=== PATIENT | female | born 1930 | race Caucasian/White ===

== ENCOUNTER 2017-09-07 06:05 | Inpatient (IN) ==
[2017-09-06 12:56] LABS: Basophils # 0.1 10*3/uL (0.0-0.2); Basophils % 0.7 % (0.0-0.8); Eosinophils # 0.2 10*3/uL (0.0-0.87); Eosinophils % 2.3 % (0.00-10.9); Hematocrit 36.4 VOL% (35.7-47.0); Hemoglobin 12.7 GM/DL (12.0-16.0); Immature Granulocytes % 0.6 %; Immature Granulocytes Absolute 0.05 #; Lymphocytes # 1.4 10*3/uL (1.4-4.0); Lymphocytes % 16.6 % (21.3-54.2); Mean Corpuscular HGB Conc 34.9 GM/DL (32-36); Mean Corpuscular Hemoglobin 30 PG (27-34); Mean Corpuscular Volume 86.1 FL (87-102); Mean Platelet Volume 10.7 FL (9.6-12.0); Monocytes # 0.6 10*3/uL (0.11-0.8); Monocytes % 6.6 % (1.7-12.7); Neutrophils # 6.1 10*3/uL (1.4-7.4); Neutrophils % 73.2 % (38.7-73.9); Platelet Count 192 T/CUMM (130-400); Red Blood Count 4.23 MC/CUMM (3.8-5.5); Red Cell Distribution Width 11.9 % (9.3-17.3); White Blood Count 8.3 T/CUMM (4-12)
[2017-09-06 13:23] LABS: Calcium 9.1 MG/DL (8.5-10.1); Osmolality,Calculated 260.9 MOS/KG (273-304); Potassium 3.8 MMOL/L (3.5-5.1)
[2017-09-07] MEDS ORDERED: ceFAZolin 1,000 MG in SYRINGE 1 EACH IV ONE (06:30)
[2017-09-07] MEDS ORDERED: ISOSULFAN BLUE 5 ML VIAL SUBCUT ONE (08:37)
[2017-09-07] MEDS ORDERED: BUPIVACAINE MPF 0.25% /EPI 30 ML VIAL ONE (08:38)
[2017-09-07] MEDS ORDERED: LIDOCAINE 1%/EPI INJ 20 ML VIAL ONE (08:38)
[2017-09-07] MEDS ORDERED: ceFAZolin 1,000 MG VIAL ONE (08:47)
[2017-09-07] MEDS ORDERED: SODIUM CHLORIDE 0.9% 1,000 ML IV SCH (09:00)
[2017-09-07] MEDS ORDERED: BACITRACIN 50,000 UNIT VIAL ONE (09:38)
[2017-09-07] MEDS ORDERED: BACITRACIN OINT 0.9 GM PACK TOP ONE ×2 (10:22→10:32)
[2017-09-07] MEDS ORDERED: LIDOCAINE 1% 5 ML VIAL ONE (11:38)
[2017-09-07] MEDS ORDERED: PROPOFOL 200 MG/20 ML VIAL IV ONE (11:38)
[2017-09-07] MEDS ORDERED: SEVOFLURANE 1 UNIT/15 MINUTE INH ONE (11:38)
[2017-09-07] MEDS ORDERED: ACETAMINOPHEN 1,000 MG/100 ML VIAL IV ONE (11:39)
[2017-09-07] MEDS ORDERED: ROCURONIUM 100 MG/10 ML VIAL IV ONE (11:39)
[2017-09-07] MEDS ORDERED: MIDAZOLAM 2 MG/2 ML VIAL ONE (11:39)
[2017-09-07] MEDS ORDERED: fentaNYL 100 MCG/2 ML VIAL ONE (11:39)
[2017-09-07] MEDS ORDERED: ONDANSETRON 4 MG/2 ML VIAL ONE (11:39)
[2017-09-07] MEDS ORDERED: SUCCINYLCHOLINE 200 MG/10 ML VIAL ONE (11:39)
[2017-09-07] MEDS ORDERED: LACTATED RINGERS 1,000 ML IV ONE (11:39)
[2017-09-07] MEDS ORDERED: ONDANSETRON 4 MG/2 ML VIAL IV PRN (11:48)
[2017-09-07] MEDS: LACTATED RINGERS 1,000 ML IV SCH (12:00)
[2017-09-07] MEDS: MORPHINE 4 MG/1 ML VIAL IV PRN (19:16)
[2017-09-08] MEDS: LACTATED RINGERS 1,000 ML IV SCH ×2 (01:22→23:32)
[2017-09-08 04:35] LABS: Calcium 7.9 MG/DL (8.5-10.1); Osmolality,Calculated 273.1 MOS/KG (273-304); Potassium 4.4 MMOL/L (3.5-5.1)
[2017-09-08 04:40] LABS: Basophils % 0.3 % (0.0-0.8); Eosinophils # 0.2 10*3/uL (0.0-0.87); Eosinophils % 1.5 % (0.00-10.9); Hematocrit 30.3 VOL% (35.7-47.0); Hemoglobin 10.6 GM/DL (12.0-16.0); Immature Granulocytes % 0.8 %; Immature Granulocytes Absolute 0.09 #; Lymphocytes # 1.4 10*3/uL (1.4-4.0); Mean Corpuscular Hemoglobin 31 PG (27-34); Mean Corpuscular Volume 88.1 FL (87-102); Mean Platelet Volume 11.5 FL (9.6-12.0); Monocytes # 0.8 10*3/uL (0.11-0.8); Monocytes % 6.9 % (1.7-12.7); Neutrophils # 8.4 10*3/uL (1.4-7.4); Neutrophils % 77.5 % (38.7-73.9); Platelet Count 174 T/CUMM (130-400); Red Blood Count 3.44 MC/CUMM (3.8-5.5); Red Cell Distribution Width 12.4 % (9.3-17.3); White Blood Count 10.9 T/CUMM (4-12)
[2017-09-08] MEDS: NEBIVOLOL 5 MG TABLET PO SCH (08:36)
[2017-09-08] MEDS: PANTOPRAZOLE 40 MG TABLET PO SCH (08:36)
[2017-09-08] MEDS: ASPIRIN EC 81 MG TABLET PO SCH (08:36)
[2017-09-08] MEDS: MORPHINE 4 MG/1 ML VIAL IV PRN (21:16)
[2017-09-09] MEDS: LACTATED RINGERS 1,000 ML IV SCH ×2 (04:19→13:14)
[2017-09-09] MEDS ORDERED: PHENOL 1.4% THROAT SPRAY 177 ML BOTTLE PO PRN (08:03)
[2017-09-09] MEDS: NEBIVOLOL 5 MG TABLET PO SCH (09:33)
[2017-09-09] MEDS: ASPIRIN EC 81 MG TABLET PO SCH (09:33)
[2017-09-09] MEDS: PANTOPRAZOLE 40 MG TABLET PO SCH (09:34)
[2017-09-09] MEDS: MORPHINE 4 MG/1 ML VIAL IV PRN (21:39)
[2017-09-10] MEDS: LACTATED RINGERS 1,000 ML IV SCH ×2 (02:58→11:54)
[2017-09-10] MEDS: ASPIRIN EC 81 MG TABLET PO SCH (08:41)
[2017-09-10] MEDS: NEBIVOLOL 5 MG TABLET PO SCH (08:41)
[2017-09-10] MEDS: PANTOPRAZOLE 40 MG TABLET PO SCH (08:41)
[2017-09-10] MEDS: ACETAMINOPHEN 325 MG TABLET PO PRN (12:19)
[2017-09-10] MEDS: MORPHINE 4 MG/1 ML VIAL IV PRN (22:29)
[2017-09-11] MEDS: NEBIVOLOL 5 MG TABLET PO SCH (09:39)
[2017-09-11] MEDS: PANTOPRAZOLE 40 MG TABLET PO SCH (09:40)
[2017-09-11] MEDS: ASPIRIN EC 81 MG TABLET PO SCH (09:40)
[2017-09-11] MEDS: ACETAMINOPHEN 325 MG TABLET PO PRN (15:08)
[2017-09-12] MEDS: NEBIVOLOL 5 MG TABLET PO SCH (08:46)
[2017-09-12] MEDS: PANTOPRAZOLE 40 MG TABLET PO SCH (08:46)
[2017-09-12] MEDS: ASPIRIN EC 81 MG TABLET PO SCH (08:46)
[2017-09-12 09:25] LABS: Hematocrit 29.9 VOL% (35.7-47.0); Hemoglobin 10.1 GM/DL (12.0-16.0)
[2017-09-12] MEDS: LISINOPRIL 20 MG TABLET PO SCH ×2 (09:47→20:30)
[2017-09-13] MEDS: LISINOPRIL 20 MG TABLET PO SCH (08:32)
[2017-09-13] MEDS: ASPIRIN EC 81 MG TABLET PO SCH (08:32)
[2017-09-13] MEDS: PANTOPRAZOLE 40 MG TABLET PO SCH (08:32)
[2017-09-13] MEDS: NEBIVOLOL 5 MG TABLET PO SCH (08:32)
[2017-09-13 12:01] VITALS: BP 150/75
== END 2017-09-13 14:40 | disposition swing bed (61) | DRG 577 ==
LOC: N.OR 06:05 → N.SDSINP 06:08 → EDSTATUS 06:30 → N.3E 11:31
PROVIDERS: ADMIT Surgery; ATTEND Surgery

== ENCOUNTER 2019-10-06 18:23 | Inpatient (IN) ==
[2019-10-06] MEDS ORDERED: MORPHINE 4 MG/1 ML VIAL ONE (19:18)
[2019-10-06] MEDS ORDERED: MORPHINE 4 MG/1 ML VIAL IV STA (19:21)
[2019-10-06] MEDS ORDERED: MORPHINE 4 MG/1 ML VIAL IV ONE ×2 (19:22→21:16)
[2019-10-06 19:36] LABS: Basophils % 0.3 % (0.0-0.8); Eosinophils % 0.3 % (0.00-10.9); Hematocrit 33.8 VOL% (35.7-47.0); Hemoglobin 10.9 GM/DL (12.0-16.0); Immature Granulocytes % 1.4 %; Immature Granulocytes Absolute 0.19 #; Lymphocytes # 1.2 10*3/uL (1.4-4.0); Lymphocytes % 9.4 % (21.3-54.2); Mean Corpuscular HGB Conc 32.2 GM/DL (32-36); Mean Corpuscular Volume 85.1 FL (87-102); Mean Platelet Volume 11.2 FL (9.6-12.0); Monocytes % 4.5 % (1.7-12.7); Neutrophils % 84.1 % (38.7-73.9); Platelet Count 237 T/CUMM (130-400); Red Blood Count 3.97 MC/CUMM (3.8-5.5); Red Cell Distribution Width 13.3 % (9.3-17.3); White Blood Count 13.2 T/CUMM (4-12)
[2019-10-06 19:44] LABS: PT Patient Result 10.8 SECS (9.8-11.9); Partial Thromboplastin Time 27.1 SECS (23.9-33.8)
[2019-10-06 19:53] LABS: Albumin 3.1 G/DL (3.4-5.0); Bilirubin,Total 0.6 MG/DL (0.2-1.0); Calcium 8.7 MG/DL (8.5-10.1); Osmolality,Calculated 275.1 MOS/KG (273-304); Total Protein 6.5 G/DL (6.4-8.3); Troponin I < 0.015 NG/ML (0.00-0.045)
[2019-10-06] MEDS ORDERED: NICOTINE 21 MG/24 HR PATCH TRANSDERM PRN (22:02)
[2019-10-06] MEDS ORDERED: guaiFENesin/DM ER 600-30 MG TABLET PO PRN (22:02)
[2019-10-06] MEDS ORDERED: PROMETHAZINE 25 MG/1 ML VIAL IM PRN (22:02)
[2019-10-06] MEDS ORDERED: MORPHINE 4 MG/1 ML VIAL IV PRN (22:02)
[2019-10-06] MEDS ORDERED: GLUCAGON 1 MG VIAL IM PRN (22:02)
[2019-10-06] MEDS ORDERED: diphenhydrAMINE CAP 25 MG CAPSULE PO PRN (22:02)
[2019-10-06] MEDS ORDERED: hydrALAZINE 20 MG/1 ML VIAL IV PRN (22:02)
[2019-10-06] MEDS ORDERED: DEXTROSE 50% 25 GM/50 ML VIAL IV PRN (22:02)
[2019-10-06] MEDS ORDERED: ZALEPLON 5 MG CAPSULE PO PRN (22:02)
[2019-10-06] MEDS ORDERED: ACETAMINOPHEN 325 MG TABLET PO PRN (22:02)
[2019-10-06 22:08] LABS: Apearance,Urine Slightly Hazy (Clear); Bacteria,Urine Occasional /HPF (Few); Bilirubin,Urine Negative (Negative); Blood, Urine Negative (Negative); Glucose,Urine (UA) Negative (Negative); Ketones,Urine Negative (Negative); Mucus,Urine Occasional /LPF (Occasional); Nitrite,Urine Negative (Negative); Protein,Urine 100 MG/DL; RBC,Urine 3 /HPF (0-4); Urine Color Yellow (Yellow); Urine Specific Gravity 1.013 (1.001-1.035); Urine Urobilinogen < 2.0 EU/DL (0.2-1.0); WBC,Urine 16 /HPF (0-6)
[2019-10-06] MEDS: SODIUM CHLORIDE 0.9% 1,000 ML IV SCH (23:50)
[2019-10-06] MEDS: ONDANSETRON 4 MG/2 ML VIAL IV PRN (23:50)
[2019-10-07] MEDS: cefTRIAXone 1,000 MG in SYRINGE 1 EACH IV SCH (01:53)
[2019-10-07 05:53] LABS: Basophils # 0.1 10*3/uL (0.0-0.2); Basophils % 0.2 % (0.0-0.8); Hematocrit 33.9 VOL% (35.7-47.0); Hemoglobin 10.9 GM/DL (12.0-16.0); Immature Granulocytes % 0.8 %; Immature Granulocytes Absolute 0.16 #; Lymphocytes % 4.9 % (21.3-54.2); Mean Corpuscular HGB Conc 32.2 GM/DL (32-36); Mean Platelet Volume 11.9 FL (9.6-12.0); Monocytes % 3.5 % (1.7-12.7); Neutrophils % 90.6 % (38.7-73.9); Platelet Count 201 T/CUMM (130-400); Red Blood Count 3.94 MC/CUMM (3.8-5.5); Red Cell Distribution Width 13.2 % (9.3-17.3); White Blood Count 20.1 T/CUMM (4-12)
[2019-10-07 06:23] LABS: Hypochromasia Slight; Lymphocytes 1 % (20-55); Ovalocytes Slight; Platelet Estimate Adequate; Segmented Neutrophils 96 % (50-85); Total Cells Counted 100
[2019-10-07] MEDS: NEBIVOLOL 5 MG TABLET PO SCH (08:28)
[2019-10-07] MEDS ORDERED: VITAMIN E 1000 UNIT CAPSULE PO SCH (09:00)
[2019-10-07] MEDS ORDERED: CLINDAMYCIN INJ 900 MG in PREMIX 1 EACH IV ONE (09:00)
[2019-10-07] MEDS ORDERED: CHOLECALCIFEROL 1,000 UNIT TABLET PO SCH (09:00)
[2019-10-07] MEDS: PANTOPRAZOLE 40 MG TABLET PO SCH (09:37)
[2019-10-07] MEDS: MULTIVITAMIN (CENTRUM) TABLET PO SCH (09:37)
[2019-10-07] MEDS: [UNRECOGNIZED DRUG - REMARK] PO SCH (09:37)
[2019-10-07] MEDS: FATTY ACIDS PO SCH (09:37)
[2019-10-07] MEDS: CITALOPRAM 20 MG TABLET PO SCH (09:37)
[2019-10-07] MEDS: DOCUSATE SODIUM 100 MG CAPSULE PO SCH ×3 (09:37→21:27)
[2019-10-07] MEDS: lisinopriL 20 MG TABLET PO SCH (09:37)
[2019-10-07] MEDS: amLODIPine 5 MG TABLET PO SCH (09:37)
[2019-10-07] MEDS: OMEGA PO SCH (09:37)
[2019-10-07] MEDS ORDERED: ROPIVACAINE 0.5% 30 ML VIAL ONE (09:44)
[2019-10-07] MEDS ORDERED: fentaNYL 100 MCG/2 ML VIAL ONE ×2 (09:45→11:54)
[2019-10-07] MEDS ORDERED: DEXAMETHASONE 4 MG/1 ML VIAL ONE ×2 (09:45→11:55)
[2019-10-07] MEDS ORDERED: LIDOCAINE 1% 5 ML VIAL ONE (09:45)
[2019-10-07] MEDS ORDERED: SUGAMMADEX 200 MG/2 ML VIAL IV ONE (10:17)
[2019-10-07] MEDS ORDERED: LACTULOSE 20 GM/30 ML UDCUP PO PRN (11:19)
[2019-10-07] MEDS ORDERED: MAGNESIUM HYDROXIDE SUSP 30 ML UDCUP PO PRN (11:19)
[2019-10-07] MEDS ORDERED: BISACODYL 10 MG SUPP RECTAL PRN (11:19)
[2019-10-07] MEDS ORDERED: ACETAMINOPHEN 325 MG TABLET PO PRN (11:22)
[2019-10-07] MEDS ORDERED: MORPHINE 4 MG/1 ML VIAL IV PRN ×2 (11:24→11:38)
[2019-10-07] MEDS ORDERED: LIDOCAINE 2% 5 ML VIAL ONE (11:53)
[2019-10-07] MEDS ORDERED: ONDANSETRON 4 MG/2 ML VIAL ONE (11:55)
[2019-10-07] MEDS ORDERED: ePHEDrine 50 MG/ML VIAL ONE (11:55)
[2019-10-07] MEDS ORDERED: ROCURONIUM 100 MG/10 ML VIAL IV ONE (11:55)
[2019-10-07] MEDS ORDERED: ETOMIDATE 40 MG/20 ML VIAL IV ONE (11:55)
[2019-10-07] MEDS ORDERED: GLYCOPYRROLATE 0.4 MG/2 ML VIAL ONE (11:55)
[2019-10-07] MEDS ORDERED: SUCCINYLCHOLINE 200 MG/10 ML VIAL ONE (11:55)
[2019-10-07] MEDS ORDERED: SEVOFLURANE 1 UNIT/15 MINUTE INH ONE (11:56)
[2019-10-07 12:24] LABS: Hematocrit 30.3 VOL% (35.7-47.0); Hemoglobin 9.7 GM/DL (12.0-16.0)
[2019-10-07] MEDS: SODIUM CHLORIDE 0.9% 1,000 ML IV SCH (15:53)
[2019-10-07] MEDS ORDERED: CLINDAMYCIN INJ 900 MG in PREMIX 1 EACH IV SCH (16:00)
[2019-10-07] MEDS: CLINDAMYCIN INJ 900 MG in PREMIX 1 EACH IV SCH (17:54)
[2019-10-07] MEDS: SIMVASTATIN 10 MG TABLET PO SCH (21:27)
[2019-10-07] MEDS: ASPIRIN EC 81 MG TABLET PO SCH (21:27)
[2019-10-08] MEDS: cefTRIAXone 1,000 MG in SYRINGE 1 EACH IV SCH (01:49)
[2019-10-08] MEDS: CLINDAMYCIN INJ 900 MG in PREMIX 1 EACH IV SCH (02:55)
[2019-10-08 06:22] LABS: Basophils % 0.1 % (0.0-0.8); Hematocrit 21.9 VOL% (35.7-47.0); Hemoglobin 7.1 GM/DL (12.0-16.0); Immature Granulocytes % 1.1 %; Immature Granulocytes Absolute 0.23 #; Lymphocytes # 1.2 10*3/uL (1.4-4.0); Lymphocytes % 5.6 % (21.3-54.2); Mean Corpuscular HGB Conc 32.4 GM/DL (32-36); Mean Corpuscular Volume 85.9 FL (87-102); Mean Platelet Volume 11.8 FL (9.6-12.0); Monocytes % 7.7 % (1.7-12.7); Neutrophils % 85.5 % (38.7-73.9); Platelet Count 207 T/CUMM (130-400); Red Blood Count 2.55 MC/CUMM (3.8-5.5); Red Cell Distribution Width 13.8 % (9.3-17.3); White Blood Count 21.7 T/CUMM (4-12)
[2019-10-08 06:48] LABS: Calcium 8.2 MG/DL (8.5-10.1); Osmolality,Calculated 278.1 MOS/KG (273-304)
[2019-10-08 07:02] LABS: Lymphocytes 8 % (20-55); Platelet Estimate Adequate; Segmented Neutrophils 90 % (50-85); Total Cells Counted 100
[2019-10-08 07:03] LABS: Hypochromasia 1+; Ovalocytes Slight
[2019-10-08] MEDS ORDERED: SODIUM CHLORIDE 0.9% 1,000 ML IV PRN (08:17)
[2019-10-08] MEDS ORDERED: PANTOPRAZOLE 40 MG TABLET PO SCH (09:00)
[2019-10-08] MEDS: CITALOPRAM 20 MG TABLET PO SCH (09:10)
[2019-10-08] MEDS: DOCUSATE SODIUM 100 MG CAPSULE PO SCH ×4 (09:10→20:55)
[2019-10-08] MEDS: PANTOPRAZOLE 40 MG TABLET PO SCH (09:11)
[2019-10-08] MEDS: ANASTROZOLE 1 MG TABLET PO SCH (09:11)
[2019-10-08] MEDS: MULTIVITAMIN (CENTRUM) TABLET PO SCH (09:11)
[2019-10-08] MEDS: CLOPIDOGREL 75 MG TABLET PO SCH (09:11)
[2019-10-08] MEDS: NEBIVOLOL 5 MG TABLET PO SCH (09:13)
[2019-10-08] MEDS: lisinopriL 20 MG TABLET PO SCH (09:14)
[2019-10-08] MEDS: amLODIPine 5 MG TABLET PO SCH (09:14)
[2019-10-08] MEDS: ONDANSETRON 4 MG/2 ML VIAL IV PRN (09:15)
[2019-10-08] MEDS: SODIUM CHLORIDE 0.9% 1,000 ML IV SCH (09:17)
[2019-10-08] MEDS: FATTY ACIDS PO SCH (11:45)
[2019-10-08] MEDS: [UNRECOGNIZED DRUG - REMARK] PO SCH (11:45)
[2019-10-08] MEDS: OMEGA PO SCH (11:45)
[2019-10-08] MEDS: OMEGA 3 ACID ETHYL ESTERS 1 GM CAPSULE PO SCH (12:28)
[2019-10-08] MEDS: GLUCOSAMINE 500 MG TABLET PO SCH (12:29)
[2019-10-08 19:07] LABS: Hematocrit 28.6 VOL% (35.7-47.0); Hemoglobin 9.4 GM/DL (12.0-16.0)
[2019-10-08] MEDS: SIMVASTATIN 10 MG TABLET PO SCH (20:55)
[2019-10-08] MEDS: ASPIRIN EC 81 MG TABLET PO SCH (20:55)
[2019-10-09] MEDS: cefTRIAXone 1,000 MG in SYRINGE 1 EACH IV SCH (01:59)
[2019-10-09 05:15] LABS: Bilirubin,Total 1.3 MG/DL (0.2-1.0); Calcium 7.8 MG/DL (8.5-10.1); Osmolality,Calculated 282.8 MOS/KG (273-304)
[2019-10-09 05:27] LABS: Basophils # 0.1 10*3/uL (0.0-0.2); Basophils % 0.3 % (0.0-0.8); Eosinophils # 0.2 10*3/uL (0.0-0.87); Eosinophils % 1.5 % (0.00-10.9); Hematocrit 28.4 VOL% (35.7-47.0); Hemoglobin 9.4 GM/DL (12.0-16.0); Immature Granulocytes % 1.2 %; Immature Granulocytes Absolute 0.17 #; Lymphocytes # 1.6 10*3/uL (1.4-4.0); Lymphocytes % 10.8 % (21.3-54.2); Mean Corpuscular HGB Conc 33.1 GM/DL (32-36); Mean Corpuscular Volume 85.3 FL (87-102); Mean Platelet Volume 11.6 FL (9.6-12.0); Monocytes % 8.4 % (1.7-12.7); Neutrophils % 77.8 % (38.7-73.9); Red Cell Distribution Width 15.6 % (9.3-17.3)
[2019-10-09 05:36] LABS: Platelet Count 152 T/CUMM (130-400); Red Blood Count 3.33 MC/CUMM (3.8-5.5); White Blood Count 14.7 T/CUMM (4-12)
[2019-10-09] MEDS: SODIUM CHLORIDE 0.9% 1,000 ML IV SCH ×2 (06:57→13:37)
[2019-10-09] MEDS: CITALOPRAM 20 MG TABLET PO SCH (09:13)
[2019-10-09] MEDS: MULTIVITAMIN (CENTRUM) TABLET PO SCH (09:13)
[2019-10-09] MEDS: amLODIPine 5 MG TABLET PO SCH (09:14)
[2019-10-09] MEDS: CLOPIDOGREL 75 MG TABLET PO SCH (09:14)
[2019-10-09] MEDS: DOCUSATE SODIUM 100 MG CAPSULE PO SCH ×2 (09:14→21:42)
[2019-10-09] MEDS: OMEGA 3 ACID ETHYL ESTERS 1 GM CAPSULE PO SCH (09:14)
[2019-10-09] MEDS: NEBIVOLOL 5 MG TABLET PO SCH (09:15)
[2019-10-09] MEDS: ANASTROZOLE 1 MG TABLET PO SCH (09:15)
[2019-10-09] MEDS: GLUCOSAMINE 500 MG TABLET PO SCH (09:15)
[2019-10-09] MEDS: PANTOPRAZOLE 40 MG TABLET PO SCH (09:15)
[2019-10-09] MEDS: ONDANSETRON 4 MG/2 ML VIAL IV PRN ×2 (09:16→18:20)
[2019-10-09] MEDS: SIMVASTATIN 10 MG TABLET PO SCH (21:42)
[2019-10-09] MEDS: ASPIRIN EC 81 MG TABLET PO SCH (21:42)
[2019-10-10] MEDS: ONDANSETRON 4 MG/2 ML VIAL IV PRN ×2 (01:03→08:00)
[2019-10-10] MEDS: cefTRIAXone 1,000 MG in SYRINGE 1 EACH IV SCH (01:05)
[2019-10-10 06:43] LABS: Basophils # 0.1 10*3/uL (0.0-0.2); Basophils % 0.4 % (0.0-0.8); Eosinophils # 0.3 10*3/uL (0.0-0.87); Eosinophils % 1.7 % (0.00-10.9); Hematocrit 28.8 VOL% (35.7-47.0); Hemoglobin 9.5 GM/DL (12.0-16.0); Immature Granulocytes % 1.2 %; Lymphocytes # 0.6 10*3/uL (1.4-4.0); Lymphocytes % 3.5 % (21.3-54.2); Mean Corpuscular Volume 85.5 FL (87-102); Mean Platelet Volume 11.6 FL (9.6-12.0); Monocytes % 6.1 % (1.7-12.7); Neutrophils % 87.1 % (38.7-73.9); Platelet Count 158 T/CUMM (130-400); Red Blood Count 3.37 MC/CUMM (3.8-5.5); Red Cell Distribution Width 15.2 % (9.3-17.3); White Blood Count 16.3 T/CUMM (4-12)
[2019-10-10 06:56] LABS: Calcium 8.2 MG/DL (8.5-10.1); Osmolality,Calculated 279.8 MOS/KG (273-304)
[2019-10-10 07:41] LABS: Anisocytosis 1+; Band Neutrophils 2 % (0-10); Eosinophils 3 % (0-10); Lymphocytes 2 % (20-55); Platelet Estimate Normal; Segmented Neutrophils 86 % (50-85); Spherocytes Few; Total Cells Counted 100
[2019-10-10] MEDS ORDERED: amLODIPine 10 MG TABLET PO SCH (09:00)
[2019-10-10] MEDS: GLUCOSAMINE 500 MG TABLET PO SCH (09:37)
[2019-10-10] MEDS: OMEGA 3 ACID ETHYL ESTERS 1 GM CAPSULE PO SCH (09:37)
[2019-10-10] MEDS: MULTIVITAMIN (CENTRUM) TABLET PO SCH (09:38)
[2019-10-10] MEDS: DOCUSATE SODIUM 100 MG CAPSULE PO SCH (09:38)
[2019-10-10] MEDS: NEBIVOLOL 5 MG TABLET PO SCH (09:38)
[2019-10-10] MEDS: CITALOPRAM 20 MG TABLET PO SCH (09:38)
[2019-10-10] MEDS: CLOPIDOGREL 75 MG TABLET PO SCH (09:39)
[2019-10-10] MEDS: PANTOPRAZOLE 40 MG TABLET PO SCH (09:39)
[2019-10-10] MEDS: ANASTROZOLE 1 MG TABLET PO SCH (09:39)
[2019-10-10 12:35] VITALS: BP 152/42
== END 2019-10-10 13:35 | disposition home or self-care (01) | DRG 470 ==
LOC: N.ED 18:23 → N.EDINP 22:06 → SUATTDRO 22:06 → N.EDINP 23:24 → N.3E 23:40
PROVIDERS: ADMIT Internal Medicine; ATTEND Internal Medicine

== ENCOUNTER 2021-01-16 07:57 | Inpatient (IN) ==
[2021-01-16] MEDS ORDERED: SODIUM CHLORIDE 0.9% 1,000 ML IV STA (08:33)
[2021-01-16] MEDS ORDERED: cefTRIAXone 1,000 MG in SODIUM CHLORIDE 0.9% 100 ML IV STA (08:34)
[2021-01-16 08:41] LABS: Basophils # 0.1 10*3/uL (0.0-0.2); Basophils % 0.4 % (0.0-0.8); Eosinophils % 0.3 % (0.00-10.9); Hematocrit 35.7 VOL% (35.7-47.0); Hemoglobin 10.7 GM/DL (12.0-16.0); Immature Granulocytes % 0.8 %; Immature Granulocytes Absolute 0.12 #; Lymphocytes # 1.5 10*3/uL (1.4-4.0); Lymphocytes % 9.4 % (21.3-54.2); Mean Corpuscular Volume 93.9 FL (87-102); Mean Platelet Volume 12.2 FL (9.6-12.0); Monocytes % 4.7 % (1.7-12.7); Neutrophils % 84.4 % (38.7-73.9); Platelet Count 274 T/CUMM (130-400); Red Cell Distribution Width 14.9 % (9.3-17.3); White Blood Count 15.7 T/CUMM (4-12)
[2021-01-16 09:03] LABS: Alanine Aminotransferase 24 U/L (13-56); Albumin 3.2 G/DL (3.4-5.0); Alkaline Phosphatase 66 U/L (45-117); Aspartate Amino Transferase 15 U/L (0-37); Bilirubin,Total < 0.39 MG/DL (0.20-1.00); Blood Urea Nitrogen 94 MG/DL (7-18); Calcium 9.8 MG/DL (8.5-10.1); Carbon Dioxide 18 MMOL/L (21-32); Glucose 137 MG/DL (74-106); Potassium 4.8 MMOL/L (3.5-5.1); Total Protein 7.6 G/DL (6.4-8.2)
[2021-01-16 09:04] LABS: ABG Base Excess -10.4 MMOL/L (-2.5-2.5); ABG HCO3 16.1 MMOL/L (20-26); ABG PCO2 33.5 MM HG (35-48); ABG PH 7.275 (7.35-7.45); ABG PO2 80.8 MM HG (80-95); ABG TCO2 14.2 MMOL/L (23-27)
[2021-01-16 09:12] LABS: Estimated Glom Filtration Rate 0 ML/MIN
[2021-01-16 09:13] LABS: Sodium 164 MMOL/L (136-145)
[2021-01-16 10:13] LABS: INR 1.1; PT Patient Result 12.3 SECS (10.5-12.0); Partial Thromboplastin Time 26.5 SECS (23.8-32.1)
[2021-01-16 10:35] LABS: Barbiturates Screen,Urine Negative (Negative); Benzodiazepines Screen,Urine Negative (Negative); Cannabinoid Screen,Urine Negative (Negative); Opiate Screen,Urine Positive (Negative); Phencyclidine Screen,Urine Negative (Negative)
[2021-01-16 10:37] LABS: Bacteria,Urine Moderate /HPF (Few); Bilirubin,Urine Negative (Negative); Blood, Urine Negative (Negative); Glucose,Urine (UA) Negative (Negative); Ketones,Urine Negative (Negative); Mucus,Urine Occasional /LPF (Occasional); Nitrite,Urine Negative (Negative); Protein,Urine 30 MG/DL; RBC,Urine 61 /HPF (0-4); Squamous Epithelial Cell,Urine Occasional /HPF (0-10); Urine Appearance CLOUDY (Clear); Urine Specific Gravity 1.014 (1.001-1.035); Urine Urobilinogen < 2.0 EU/DL (0.2-1.0)
[2021-01-16 10:39] LABS: Urine Color Yellow (Yellow)
[2021-01-16] MEDS ORDERED: hydrALAZINE 20 MG/1 ML VIAL IV PRN (10:47)
[2021-01-16] MEDS ORDERED: GLUCAGON 1 MG VIAL IM PRN (10:47)
[2021-01-16] MEDS ORDERED: ALBUTEROL 2.5 MG/3 ML NEB RESP TX PRN (10:47)
[2021-01-16] MEDS ORDERED: DEXTROSE 50% 25 GM/50 ML VIAL IV PRN (10:47)
[2021-01-16 11:18] LABS: Risk Ratio 2.79; Thyroid Stimulating Hormone 0.852 uIU/ml (0.358-3.74); VLDL Cholesterol 19.8 MG/DL
[2021-01-16] MEDS: DEXTROSE 5% NACL 0.9% 1,000 ML IV SCH ×2 (11:26→16:50)
[2021-01-16] MEDS: ENOXAPARIN 40 MG/0.4 ML SYRINGE SUBCUT SCH (11:26)
[2021-01-16 17:31] LABS: Calcium 9.3 MG/DL (8.5-10.1); Osmolality,Calculated 355.9 MOS/KG (273-304)
[2021-01-17] MEDS: DEXTROSE 5% NACL 0.9% 1,000 ML IV SCH ×5 (02:44→18:48)
[2021-01-17 05:13] LABS: Basophils # 0.1 10*3/uL (0.0-0.2); Basophils % 0.4 % (0.0-0.8); Eosinophils # 0.2 10*3/uL (0.0-0.87); Eosinophils % 1.7 % (0.00-10.9); Hematocrit 31.8 VOL% (35.7-47.0); Hemoglobin 9.6 GM/DL (12.0-16.0); Immature Granulocytes % 0.7 %; Immature Granulocytes Absolute 0.09 #; Lymphocytes # 1.5 10*3/uL (1.4-4.0); Mean Corpuscular HGB Conc 30.2 GM/DL (32-36); Mean Platelet Volume 12.6 FL (9.6-12.0); Monocytes % 5.9 % (1.7-12.7); Neutrophils % 80.3 % (38.7-73.9); Platelet Count 209 T/CUMM (130-400); Red Blood Count 3.42 MC/CUMM (3.8-5.5); Red Cell Distribution Width 14.9 % (9.3-17.3); White Blood Count 13.8 T/CUMM (4-12)
[2021-01-17 05:44] LABS: Calcium 8.9 MG/DL (8.5-10.1); Osmolality,Calculated 347.6 MOS/KG (273-304); Potassium 3.9 MMOL/L (3.5-5.1)
[2021-01-17] MEDS: cefTRIAXone 1,000 MG in SODIUM CHLORIDE 0.9% 100 ML IV SCH (09:27)
[2021-01-17] MEDS: ENOXAPARIN 40 MG/0.4 ML SYRINGE SUBCUT SCH (09:28)
[2021-01-17] MEDS: SKIN HEALING OINT (AQUAPHOR) 50 GM TUBE TOP SCH (15:57)
[2021-01-18] MEDS: DEXTROSE 5% NACL 0.9% 1,000 ML IV SCH ×2 (00:31→16:36)
[2021-01-18 05:41] LABS: Basophils # 0.1 10*3/uL (0.0-0.2); Basophils % 0.4 % (0.0-0.8); Eosinophils # 0.4 10*3/uL (0.0-0.87); Eosinophils % 3.8 % (0.00-10.9); Hematocrit 31.6 VOL% (35.7-47.0); Hemoglobin 9.9 GM/DL (12.0-16.0); Immature Granulocytes % 0.5 %; Immature Granulocytes Absolute 0.06 #; Lymphocytes # 1.3 10*3/uL (1.4-4.0); Lymphocytes % 11.2 % (21.3-54.2); Mean Corpuscular HGB Conc 31.3 GM/DL (32-36); Mean Corpuscular Volume 91.6 FL (87-102); Neutrophils % 79.1 % (38.7-73.9); Platelet Count 183 T/CUMM (130-400); Red Blood Count 3.45 MC/CUMM (3.8-5.5); Red Cell Distribution Width 14.6 % (9.3-17.3); White Blood Count 11.5 T/CUMM (4-12)
[2021-01-18 05:58] LABS: Calcium 8.4 MG/DL (8.5-10.1); Osmolality,Calculated 335.5 MOS/KG (273-304); Potassium 3.4 MMOL/L (3.5-5.1)
[2021-01-18] MEDS ORDERED: POTASSIUM CHLORIDE RIDER 10 MEQ/100 ML PREMIX IV ONE (09:00)
[2021-01-18] MEDS: SKIN HEALING OINT (AQUAPHOR) 50 GM TUBE TOP SCH (12:18)
[2021-01-18] MEDS: DEXTROSE 5% 1,000 ML IV SCH ×2 (13:14→23:55)
[2021-01-18] MEDS: cefTRIAXone 1,000 MG in SODIUM CHLORIDE 0.9% 100 ML IV SCH (13:18)
[2021-01-18] MEDS: ENOXAPARIN 40 MG/0.4 ML SYRINGE SUBCUT SCH (13:20)
[2021-01-18] MEDS: ALBUTEROL 2.5 MG/3 ML NEB RESP TX SCH ×2 (14:00→19:45)
[2021-01-18] MEDS: PANTOPRAZOLE 40 MG VIAL IV SCH (16:01)
[2021-01-18 20:11] LABS: Calcium 8.1 MG/DL (8.5-10.1); Osmolality,Calculated 328.9 MOS/KG (273-304); Potassium 3.4 MMOL/L (3.5-5.1)
[2021-01-19] MEDS: ALBUTEROL 2.5 MG/3 ML NEB RESP TX SCH ×4 (00:10→19:15)
[2021-01-19 05:24] LABS: Basophils % 0.2 % (0.0-0.8); Eosinophils # 0.3 10*3/uL (0.0-0.87); Eosinophils % 2.5 % (0.00-10.9); Hematocrit 28.7 VOL% (35.7-47.0); Immature Granulocytes % 0.4 %; Immature Granulocytes Absolute 0.04 #; Lymphocytes # 1.5 10*3/uL (1.4-4.0); Lymphocytes % 14.7 % (21.3-54.2); Mean Corpuscular HGB Conc 31.4 GM/DL (32-36); Monocytes % 5.3 % (1.7-12.7); Neutrophils % 76.9 % (38.7-73.9); Platelet Count 147 T/CUMM (130-400); Red Blood Count 3.12 MC/CUMM (3.8-5.5); Red Cell Distribution Width 14.6 % (9.3-17.3); White Blood Count 10.3 T/CUMM (4-12)
[2021-01-19 05:35] LABS: Calcium 7.7 MG/DL (8.5-10.1); Osmolality,Calculated 325.2 MOS/KG (273-304); Potassium 3.2 MMOL/L (3.5-5.1)
[2021-01-19] MEDS: POTASSIUM CHLORIDE RIDER 10 MEQ/100 ML PREMIX IV PRN ×6 (06:06→21:39)
[2021-01-19] MEDS: SKIN HEALING OINT (AQUAPHOR) 50 GM TUBE TOP SCH (09:01)
[2021-01-19] MEDS: cefTRIAXone 1,000 MG in SODIUM CHLORIDE 0.9% 100 ML IV SCH (09:01)
[2021-01-19] MEDS: PANTOPRAZOLE 40 MG VIAL IV SCH (09:02)
[2021-01-19] MEDS: ENOXAPARIN 40 MG/0.4 ML SYRINGE SUBCUT SCH (09:02)
[2021-01-19] MEDS: DEXTROSE 5% 1,000 ML IV SCH ×2 (15:32→15:33)
[2021-01-20] MEDS: ALBUTEROL 2.5 MG/3 ML NEB RESP TX SCH ×4 (01:05→20:55)
[2021-01-20] MEDS: DEXTROSE 5% 1,000 ML IV SCH ×2 (02:00→21:15)
[2021-01-20 08:58] LABS: Calcium 7.6 MG/DL (8.5-10.1); Osmolality,Calculated 293.8 MOS/KG (273-304); Potassium 3.9 MMOL/L (3.5-5.1)
[2021-01-20 09:02] LABS: Basophils % 0.3 % (0.0-0.8); Eosinophils # 0.4 10*3/uL (0.0-0.87); Eosinophils % 4.8 % (0.00-10.9); Hematocrit 32.3 VOL% (35.7-47.0); Immature Granulocytes % 1.1 %; Lymphocytes # 1.7 10*3/uL (1.4-4.0); Lymphocytes % 18.6 % (21.3-54.2); Mean Corpuscular Volume 98.8 FL (87-102); Mean Platelet Volume 12.8 FL (9.6-12.0); Monocytes % 5.1 % (1.7-12.7); Neutrophils % 70.1 % (38.7-73.9); Platelet Count 118 T/CUMM (130-400); Red Blood Count 3.27 MC/CUMM (3.8-5.5); Red Cell Distribution Width 14.4 % (9.3-17.3)
[2021-01-20 09:07] LABS: Hemoglobin 9.7 GM/DL (12.0-16.0)
[2021-01-20] MEDS: cefTRIAXone 1,000 MG in SODIUM CHLORIDE 0.9% 100 ML IV SCH (10:44)
[2021-01-20] MEDS: PANTOPRAZOLE 40 MG VIAL IV SCH (10:45)
[2021-01-20] MEDS: SKIN HEALING OINT (AQUAPHOR) 50 GM TUBE TOP SCH (10:45)
[2021-01-20] MEDS: ENOXAPARIN 40 MG/0.4 ML SYRINGE SUBCUT SCH (10:45)
[2021-01-21] MEDS: ALBUTEROL 2.5 MG/3 ML NEB RESP TX SCH ×4 (03:55→20:35)
[2021-01-21] MEDS: DEXTROSE 5% 1,000 ML IV SCH ×2 (06:11→17:19)
[2021-01-21 06:14] LABS: Basophils % 0.2 % (0.0-0.8); Eosinophils # 0.5 10*3/uL (0.0-0.87); Eosinophils % 5.4 % (0.00-10.9); Hematocrit 28.7 VOL% (35.7-47.0); Hemoglobin 9.1 GM/DL (12.0-16.0); Immature Granulocytes % 1.4 %; Immature Granulocytes Absolute 0.12 #; Lymphocytes # 1.2 10*3/uL (1.4-4.0); Lymphocytes % 14.3 % (21.3-54.2); Mean Corpuscular HGB Conc 31.7 GM/DL (32-36); Mean Platelet Volume 13.2 FL (9.6-12.0); Monocytes % 6.7 % (1.7-12.7); Platelet Count 111 T/CUMM (130-400); Red Blood Count 3.19 MC/CUMM (3.8-5.5); Red Cell Distribution Width 14.3 % (9.3-17.3); White Blood Count 8.5 T/CUMM (4-12)
[2021-01-21 06:33] LABS: Hypochromasia Slight; Microcytosis Slight
[2021-01-21 06:50] LABS: Calcium 7.8 MG/DL (8.5-10.1); Osmolality,Calculated 288.3 MOS/KG (273-304); Potassium 3.7 MMOL/L (3.5-5.1)
[2021-01-21] MEDS: cefTRIAXone 1,000 MG in SODIUM CHLORIDE 0.9% 100 ML IV SCH (09:43)
[2021-01-21] MEDS: PANTOPRAZOLE 40 MG VIAL IV SCH (09:45)
[2021-01-21] MEDS: ENOXAPARIN 40 MG/0.4 ML SYRINGE SUBCUT SCH (09:45)
[2021-01-21] MEDS: SKIN HEALING OINT (AQUAPHOR) 50 GM TUBE TOP SCH (09:46)
[2021-01-22] MEDS: ALBUTEROL 2.5 MG/3 ML NEB RESP TX SCH ×4 (00:05→19:41)
[2021-01-22] MEDS: DEXTROSE 5% 1,000 ML IV SCH ×2 (02:39→16:41)
[2021-01-22 06:05] LABS: Basophils % 0.3 % (0.0-0.8); Eosinophils # 0.3 10*3/uL (0.0-0.87); Eosinophils % 4.8 % (0.00-10.9); Hematocrit 26.9 VOL% (35.7-47.0); Hemoglobin 8.7 GM/DL (12.0-16.0); Immature Granulocytes % 0.9 %; Immature Granulocytes Absolute 0.06 #; Lymphocytes # 0.7 10*3/uL (1.4-4.0); Lymphocytes % 10.3 % (21.3-54.2); Mean Corpuscular HGB Conc 32.3 GM/DL (32-36); Mean Platelet Volume 13.9 FL (9.6-12.0); Monocytes % 6.4 % (1.7-12.7); Neutrophils % 77.3 % (38.7-73.9); Platelet Count 104 T/CUMM (130-400); Red Blood Count 2.99 MC/CUMM (3.8-5.5); Red Cell Distribution Width 14.1 % (9.3-17.3); White Blood Count 6.9 T/CUMM (4-12)
[2021-01-22 06:32] LABS: Calcium 7.6 MG/DL (8.5-10.1); Osmolality,Calculated 282.7 MOS/KG (273-304); Potassium 3.8 MMOL/L (3.5-5.1)
[2021-01-22] MEDS: ONDANSETRON 4 MG/2 ML VIAL IV PRN ×3 (08:40→20:45)
[2021-01-22] MEDS: ENOXAPARIN 40 MG/0.4 ML SYRINGE SUBCUT SCH (08:41)
[2021-01-22] MEDS: PANTOPRAZOLE 40 MG VIAL IV SCH (08:42)
[2021-01-22] MEDS: cefTRIAXone 1,000 MG in SODIUM CHLORIDE 0.9% 100 ML IV SCH (08:44)
[2021-01-22] MEDS: NEBIVOLOL 5 MG TABLET PO SCH (09:54)
[2021-01-22] MEDS: SKIN HEALING OINT (AQUAPHOR) 50 GM TUBE TOP SCH (09:54)
[2021-01-22] MEDS: hydrALAZINE 25 MG TABLET PO SCH ×2 (14:29→20:45)
[2021-01-22] MEDS: APIXABAN 2.5 MG TABLET PO SCH (20:45)
[2021-01-23] MEDS: DEXTROSE 5% 1,000 ML IV SCH ×3 (00:45→09:47)
[2021-01-23] MEDS: ALBUTEROL 2.5 MG/3 ML NEB RESP TX SCH ×4 (00:50→19:04)
[2021-01-23 06:36] LABS: Basophils % 0.3 % (0.0-0.8); Eosinophils # 0.3 10*3/uL (0.0-0.87); Eosinophils % 4.3 % (0.00-10.9); Hemoglobin 8.4 GM/DL (12.0-16.0); Immature Granulocytes % 0.9 %; Immature Granulocytes Absolute 0.07 #; Lymphocytes % 12.7 % (21.3-54.2); Mean Corpuscular HGB Conc 31.1 GM/DL (32-36); Mean Platelet Volume 14.2 FL (9.6-12.0); Monocytes % 8.5 % (1.7-12.7); Neutrophils % 73.3 % (38.7-73.9); Platelet Count 102 T/CUMM (130-400); Red Cell Distribution Width 14.3 % (9.3-17.3); White Blood Count 7.6 T/CUMM (4-12)
[2021-01-23 07:09] LABS: Calcium 7.5 MG/DL (8.5-10.1); Osmolality,Calculated 279.7 MOS/KG (273-304); Potassium 3.7 MMOL/L (3.5-5.1)
[2021-01-23] MEDS: NEBIVOLOL 5 MG TABLET PO SCH (09:45)
[2021-01-23] MEDS: hydrALAZINE 25 MG TABLET PO SCH ×3 (09:45→21:26)
[2021-01-23] MEDS: APIXABAN 2.5 MG TABLET PO SCH ×2 (09:45→21:27)
[2021-01-23] MEDS: PANTOPRAZOLE 40 MG VIAL IV SCH (09:46)
[2021-01-23] MEDS: cefTRIAXone 1,000 MG in SODIUM CHLORIDE 0.9% 100 ML IV SCH (09:46)
[2021-01-23] MEDS: SKIN HEALING OINT (AQUAPHOR) 50 GM TUBE TOP SCH (09:47)
[2021-01-23] MEDS ORDERED: FUROSEMIDE 40 MG/4 ML VIAL IV ONE (12:53)
[2021-01-24] MEDS: ALBUTEROL 2.5 MG/3 ML NEB RESP TX SCH ×2 (00:40→07:15)
[2021-01-24 06:51] LABS: Basophils % 0.2 % (0.0-0.8); Eosinophils # 0.4 10*3/uL (0.0-0.87); Eosinophils % 4.4 % (0.00-10.9); Hematocrit 28.6 VOL% (35.7-47.0); Hemoglobin 9.1 GM/DL (12.0-16.0); Immature Granulocytes % 0.6 %; Immature Granulocytes Absolute 0.05 #; Lymphocytes # 1.2 10*3/uL (1.4-4.0); Lymphocytes % 14.7 % (21.3-54.2); Mean Corpuscular HGB Conc 31.8 GM/DL (32-36); Mean Corpuscular Volume 89.9 FL (87-102); Mean Platelet Volume 13.6 FL (9.6-12.0); Monocytes % 9.1 % (1.7-12.7); Platelet Count 105 T/CUMM (130-400); Red Blood Count 3.18 MC/CUMM (3.8-5.5); Red Cell Distribution Width 14.2 % (9.3-17.3); White Blood Count 8.2 T/CUMM (4-12)
[2021-01-24 07:12] LABS: Hypochromasia 1+; Microcytosis 1+; Platelet Estimate Decreased
[2021-01-24 07:22] LABS: Albumin 2.2 G/DL (3.4-5.0); Bilirubin,Total 0.6 MG/DL (0.20-1.00); Calcium 8.1 MG/DL (8.5-10.1); Osmolality,Calculated 287.1 MOS/KG (273-304); Potassium 3.8 MMOL/L (3.5-5.1); Total Protein 5.5 G/DL (6.4-8.2)
[2021-01-24] MEDS: SKIN HEALING OINT (AQUAPHOR) 50 GM TUBE TOP SCH (08:22)
[2021-01-24] MEDS: NEBIVOLOL 5 MG TABLET PO SCH (08:22)
[2021-01-24] MEDS: hydrALAZINE 25 MG TABLET PO SCH (08:22)
[2021-01-24] MEDS: APIXABAN 2.5 MG TABLET PO SCH (08:22)
[2021-01-24] MEDS: PANTOPRAZOLE 40 MG VIAL IV SCH (08:42)
[2021-01-24] MEDS: cefTRIAXone 1,000 MG in SODIUM CHLORIDE 0.9% 100 ML IV SCH (08:51)
[2021-01-24 10:56] VITALS: BP 131/51
== END 2021-01-24 11:58 | DRG 682 ==
LOC: EDBD → EDUNIT# → N.ED 07:57 → N.EDINP 10:47 → SUATTDRO 10:47 → N.5E 15:50
PROVIDERS: ADMIT Internal Medicine Geriatric Medicine; ATTEND Internal Medicine